=== PATIENT | male | born 1985 | race Caucasian/White ===

== ENCOUNTER → 2016-09-16 | Outpatient (CLI) | payer OTHER ==
--- NOTE | 2016-09-16 19:49 | ECHO ---
DATE OF PROCEDURE: 09/16/2016 REFERRING PROVIDER: Misael Galdamez Study was performed on outpatient basis. INDICATION: Pericarditis. HEIGHT: 193 cm WEIGHT: 103 kg DIMENSIONS: IVS: 0.8 LV: 5.0 LVPW: 1.8 LA: 3.3 Aorta: 3.2 Ascending aorta: 3.2. E-velocity 74 cm/sec. E-prime septal 11.0 cm/sec E-prime lateral 15.9 cm/sec FINDINGS: The study is of good technical quality. Left ventricle is normal size and systolic function. Estimated left ventricular ejection fraction (LVEF) 60-65%. Right ventricle is also of normal size and systolic function. Both atria appear normal. All four valves were well seen and appear normal. No pericardial effusion is present. Inferior vena cava is normal size. Aortic root and aortic arch appear normal. Doppler interrogation reveals competent aortic valve. There is also no mitral stenosis or insufficiency. There is trace tricuspid insufficiency. Calculated pulmonary artery pressure is within normal values. Pulmonic valve is also functionally competent. Mitral inflow pattern and tissue Doppler imaging of mitral annulus revealed normal diastolic function. CONCLUSIONS: 1. Study is of good technical quality. 2. Normal left ventricle (LV) size, systolic and diastolic function. 3. No significant valvular disease. 4. Normal central venous pressure and likely normal pulmonary artery pressure. 5. No pericardial effusion. COMMENT: Essentially normal echocardiogram. SBE prophylaxis is not recommended. MTDD
== END ==
LOC: M CARPUL 09:37
PROVIDERS: ATTEND Physician Assistant
DX: R07.89 Other chest pain (principal)